=== PATIENT | female | born 1955 | race Caucasian/White ===

== ENCOUNTER → 2022-10-09 | Day surgery (SDC) | payer MEDICARE, OTHER | LOC: CSHULT 12:17 | PROVIDERS: ATTEND Nurse Practitioner | DX: C50.912 Malignant neoplasm of unspecified site of left female breast (principal) | CPT/HCPCS: 19083; 88305; 88341; 88342 ==

== ENCOUNTER 2024-11-09 13:12 | Outpatient (CLI) | payer MEDICARE, OTHER | END 2024-11-09 13:13 | disposition home or self-care (01) | LOC: CSHMAMMO 13:12 | PROVIDERS: ATTEND Specialist | DX: D05.02 Lobular carcinoma in situ of left breast (principal) | CPT/HCPCS: 76642; 77066; G0279 ==